=== PATIENT | female | born 1960 | race Two or more races ===

== ENCOUNTER 2023-04-10 10:19 | Emergency (ER) | payer MEDICAID ==
[~2023-04-10] VITALS: Ht 154.9 cm; Wt 87.6 kg
[2023-04-10 11:31] LABS: Urine Bacteria MOD /hpf (None Seen); Urine Blood 1+ /uL (Negative); Urine Clarity HAZY (Clear); Urine Color Yellow (Yellow); Urine Protein, UAD 1+ (Negative); Urine Urobilinogen Normal (Negative); Urine WBC 305 /hpf (0 - 5); Urine WBC Clumps PRESENT /hpf (None Seen); Urine pH 6.5 (5.0-8.0)
[2023-04-10 11:36] LABS: Basophils # (auto) 0 10 ^3/uL (0-0.2); Basophils % (auto) 0.4 % (0.0-2.0); Eosinophils # (auto) 0.1 10 ^3/uL (0-0.8); Eosinophils % (auto) 1.4 % (0.0-7.0); Hemoglobin 12.8 g/dL (12.2-16.2); Lymphocytes # (auto) 1.8 10 ^3/uL (0.4-5.4); Lymphocytes % (auto) 37.4 % (10.0-50.0); Mean Corpuscular Hemoglobin 31.3 pg (28.0-32.0); Mean Corpuscular Hgb Conc. 33.8 g/dL (32.0-36.0); Mean Corpuscular Volume 92.7 fL (80.0-100.0); Monocytes # (auto) 0.4 10 ^3/uL (0-1.3); Monocytes % (auto) 7.3 % (0.0-12.0); Neutrophils # (auto) 2.6 10 ^3/uL (1.6-8.6); Neutrophils % (auto) 53.5 % (37.0-80.0); Nucleated Red Blood Cells % 0.1 %; Red Cell Distribution Width 13.3 % (11.8-14.3); White Blood Cell 4.8 10^3/uL (4.4-10.8)
[2023-04-10 11:55] LABS: Alanine Aminotransferase 15 U/L (7-40); Alkaline Phosphatase 67 U/L (46-116); Anion Gap 5 (5-15); Aspartate Aminotransferase 18 U/L (13-40); BUN/Creatinine Ratio 19.2 (10.0-20.0); Blood Urea Nitrogen 14 mg/dL (9-23); Calcium 9.2 mg/dL (8.5-10.1); Carbon Dioxide 27 mmol/L (20-30); Chloride 108 mmol/L (98-107); Glucose 106 mg/dL (74-106); Potassium 4.8 mmol/L (3.5-5.1); Sodium 140 mmol/L (136-145)
[2023-04-10 11:56] LABS: Albumin 4.3 g/dL (3.2-4.8); Bilirubin, Total 0.4 mg/dL (0.2-1.0); Total Protein 7.9 g/dL (5.7-8.2)
[2023-04-10 12:01] LABS: INR 0.98 (0.9-1.15); Partial Thromboplastin Time 28.3 SEC (24.5-34.5); Prothrombin Time 10.3 sec (9.3-11.8)
[2023-04-10 12:52] VITALS: BP 117/71; PULSE 81; RESP 19; TEMP 97.8; O2SAT 97
[2023-04-10] MEDS: cefTRIAXone 1GM/50ML D5W 50 ML IV ONE (13:17)
[2023-04-10] MEDS: KETOROLAC TROMETH 30 MG/ML 1ML VIAL IV ONE (13:17)
[2023-04-10] MEDS ORDERED: PHEN1TAB38 PO (13:54)
[2023-04-10] MEDS ORDERED: BACDST PO (13:54)
== END 2023-04-10 14:12 | disposition home or self-care (01) ==
LOC: ER 10:19
DX: N30.01 Acute cystitis with hematuria (principal)
CPT/HCPCS: 36415; 80053; 81001; 83605; 85025; 85610; 85730; 87040; 96365; 96375; 99284; J0696; J1885

== ENCOUNTER 2023-04-19 12:32 | Emergency (ER) | payer MEDICAID ==
[~2023-04-19] VITALS: Ht 154.9 cm; Wt 87.0 kg
[~2023-04-19 12:32] MED LIST: BACDST PO; PHEN1TAB38 PO
[2023-04-19 12:33] VITALS: TEMP 97.6
[2023-04-19 12:43] VITALS: BP 123/72; PULSE 71; RESP 18; O2SAT 97
[2023-04-19 13:32] LABS: Urine Bacteria NONE SEEN /hpf (None Seen); Urine Blood 2+ /uL (Negative); Urine Clarity Clear (Clear); Urine Color Yellow (Yellow); Urine Mucus MANY (None Seen); Urine Protein, UAD Negative (Negative); Urine Urobilinogen Normal (Negative); Urine WBC 7 /hpf (0 - 5); Urine pH 5.5 (5.0-8.0)
[2023-04-19] MEDS ORDERED: NITR-87 PO (14:55)
[2023-04-19] MEDS: cefTRIAXone SOD 1,000 MG VL IM ONE (15:10)
== END 2023-04-19 15:07 | disposition home or self-care (01) ==
LOC: ER 12:32
DX: N30.01 Acute cystitis with hematuria (principal); Z79.899 Other long term (current) drug therapy
CPT/HCPCS: 81001; 96372; 99283; J0696